=== PATIENT | female | born 2005 | race Hispanic/Latino ===

== ENCOUNTER 2024-04-16 04:57 | Emergency (ER) | payer SELFPAY ==
[2024-04-16 04:59] VITALS: BP 140/84
--- NOTE | 2024-04-16 05:50 | EDRN ---
Per crisis, pt is from [place] so some referrals were provided to pt. paste worker reports pt is not suicidal and is able to leave at any time from a crisis standpoint. Pt came from [place] on Tuesday to visit her ex-boyfriend. Pt [facility] so she [facility]. Pt reportedly was told she had to come to the hospital via ambulance or whoever was in the house at the time was going to be woken up which pt did not want because she did not want anyone to know she was having a
crisis. Pt denies SI/HI/AH/VH. Pt is going back to [place], says she will arrange an Uber home then get a bus back to [place].
--- NOTE | 2024-04-16 05:58 | ED.GENMED ---
History of Present Illness
General
Chief Complaint: Crisis Evaluation
Source: patient and ambulance crew
Exam Limitations: none
Time Seen by Provider: 04/16/24 05:47
Nursing documentation reviewed up to this point in time: agreed with
History of Present Illness
History of Present Illness:
This is a 19-year-old woman who has a prior history of anxiety, depression. Generally well-controlled, takes no medications on a daily basis. She does admit to significant recent stress as she suffered an early miscarriage a few weeks ago. She
feels that her boyfriend has not been as supportive as she would like and she had been residing with him locally but after miscarriage, returned home to [facility], but then returned here on Tuesday, 3 days ago to try and reconcile with her
boyfriend. This relationship has not been as supportive as she would like, she admits to feeling lonely, sad and she called 911 [facility] hoping she could talk to somebody as she has increased thoughts of sadness. She adamantly denies suicidal
thoughts or plan, no previous history of suicide attempts.
She denies alcohol and or drug use.
She plans to return to [place] today via public transportation/bus.
She is brought to the ED by EMS and has been evaluated by [facility].
Crisis counselor has provided outpatient resources. [facility] does not feel patient is a danger to herself, does not feel she requires inpatient psychiatric treatment.
Past History
Past History
ED Past Medical History: Psychiatric
ED Past Surgical History: Gynecological (D and ED)
Social History
Tobacco: Non-smoker
Drug: None
Personal: Single
Living: with family
Employment: Not employed
Family History
Family History: Other (Noncontributory)
Phy Exam
Physical Exam
Physical Exam:
PHYSICAL EXAMINATION:
General: 19-year-old female appears her stated age. She is well-dressed/well-groomed. Bright and alert, easily communicative. Maintains eye contact. Appears in no acute distress.
Neuro: alert and oriented. no focal neurological deficits
Psychiatric: Admits to feeling sad, increased stress but adamantly denies suicidal thoughts or plan. Denies alcohol or drug use. She is future and goal oriented.
Course
Orders/Labs/Results
Orders:
Orders
04/16/24 05:07
Crisis Consult Urgent
Reason for Consult: pt requests to speak with crisis; miscarriage couple weeks ago
Vital Signs
Initial and Last Documented VS:
Initial Vital Signs
Temp Pulse Resp BP Pulse Ox
98 F 94 22 140/84 100
04/16/24 04:59 04/16/24 04:59 04/16/24 04:59 04/16/24 04:59 04/16/24 04:59
Last Documented Vital Signs
Temp Pulse Resp BP Pulse Ox
98 F 88 16 101/84 100
04/16/24 04:59 04/16/24 06:05 04/16/24 06:05 04/16/24 06:05 04/16/24 06:05
MDM/Problems Addressed
Differential Diagnosis Includes:
As above. Patient admits to recent sadness after suffering an early miscarriage.
Has had somewhat poor relationship with current boyfriend but denies violence. She continues to denies suicidal thoughts or plan.
Has been evaluated by [facility] who feels patient is safe to be discharged to home and has been provided with outpatient resources for follow-up.
Patient plans to return to [place] where her family resides. She has a bus schedule and she plans to board the bus today to return home to [place].
At this point there does not appear to be an acute psychiatric crisis, there does not appear to be any acute social/monetary/housing deficits.
She is eager to be discharged to home.
Chronic conditions affecting care: Psychiatric illness
*Pulse Oximetry
Patient hypoxic: no
*Critical Care Note
Total Time (30-74mins, 75-104mins- exclusive of procedures): Not Applicable
ED Attending Note
-
Portions of this chart may have been created with voice recognition software.� Occasional wrong word or��sound alike� substitutions may have occurred due to the inherent limitations of voice recognition software.
Discharge Plan
Departure
Patient Disposition: Home (Routine Discharge)
Date of Disposition: 04/16/24
Time of Disposition: 05:59
Patient with high blood pressure during this ER visit?: No
Condition: Good
Discharge Problem:
Reactive depression (situational)
Instructions: Depression, Adult (DC), Suicide prevention
Prescriptions:
No Action
No Current Medications
0
Activity Restrictions/Additional Instructions:
Upon returning home to [place], follow-up with your primary care physician for recheck.
Interventions
Interventions:
*Risk Screen - Suicide Last Done: 04/16/24 04:59
*General Assessment Last Done: 04/16/24 05:49
*Neglect/Abuse Screening Last Done: 04/16/24 04:59
*ED COVID-19 Vaccine History Last Done: 04/16/24 05:49
*Nursing Disposition Last Done: 04/16/24 06:07
ED-Psychological Assessment Last Done: 04/16/24 05:49
Discharge Date and Time
Discharge Date/Time: 04/16/24 06:07
Print Language: TURKISH
[2024-04-16 06:05] VITALS: BP 101/84
== END 2024-04-16 06:07 | disposition home or self-care (01) ==
LOC: EMR 04:57
PROVIDERS: EMERGENCY PHYSICIAN Emergency Medicine
DX: F32.89 Other specified depressive episodes (principal); F41.9 Anxiety disorder, unspecified
CPT/HCPCS: 99283